=== PATIENT | female | born 1970 | race Two or more races ===

== ENCOUNTER 2024-11-08 10:00 | Day surgery (SDC) | payer MEDICAID, SELFPAY ==
[2024-11-06 11:05] VITALS: BMI 25.6
[2024-11-06 12:04] LABS: Basophils # (Auto) 0.1 Thou/mm3 (0.0-0.2); Basophils % (Auto) 1 % (0-2.5); Eosinophils # (Auto) 0.1 Thou/mm3 (0.0-0.5); Eosinophils % (Auto) 1 % (0-10); Hematocrit 36.6 % (36.0-46.0); Hemoglobin 12.5 g/dL (12.0-16.0); Immature Granulocytes % (Auto) 0 % (0-0); Immature Granulocytes Auto 0.01 Thou/mm3 (0.00-0.00); Lymphocytes # (Auto) 2.4 Thou/mm3 (1.0-4.8); Lymphocytes % (Auto) 36 % (10-50); Mean Corpuscular HGB Conc 34.2 g/dl (31.0-37.0); Mean Corpuscular Volume 88 fL (80-100); Monocytes # (Auto) 0.4 Thou/mm3 (0.0-0.8); Monocytes % (Auto) 6 % (0-12); Neutrophils # (Auto) 3.8 Thou/mm3 (1.8-7.7); Neutrophils % (Auto) 56 % (37-80); Nucleated Red Blood Cell % 0 /100 WBC (0); Platelet Count 201 Thou/mm3 (140-440); RDW Standard Deviation 40.2 fL (36.4-46.3); Red Blood Count 4.16 Miln/mm3 (4.00-5.20); White Blood Count 6.8 Thou/mm3 (3.6-11.0)
[2024-11-06 12:10] LABS: Partial Thromboplastin Time 25.9 Seconds (22.0-36.0); Prothrombin Time 10.6 Seconds (9.0-12.2)
[2024-11-06 12:15] LABS: Alanine Aminotransferase 14 U/L (10-49); Albumin, Serum 4.8 gm/dL (3.5-5.0); Alkaline Phosphatase 50 U/L (46-116); Anion Gap 9 (7-16); Aspartate Amino Transferase 13 U/L (0-34); BUN/Creatinine Ratio 16 Ratio (12-20); Bilirubin,Total 0.6 mg/dL (0.3-1.2); Blood Urea Nitrogen 13 mg/dL (9-23); Calcium 9.5 mg/dL (8.3-10.6); Calcium (Corrected) 9.5 mg/dL (8.5-10.1); Carbon Dioxide 24.5 mMol/L (20.0-31.0); Chloride 106 mMol/L (98-107); Creatinine (Component) 0.8 mg/dL (0.6-1.3); Estimated Creatinine Clearance 86.5 mL/min (>60); Globulin 2.4 gm/dL (2.3-3.5); Glucose 85 mg/dL (74-106); Osmolality,Calculated 276 (275-295); Sodium 139 mMol/L (136-145); Total Protein 7.2 gm/dL (5.7-8.2); eGFR > 60 See Note
[2024-11-08 10:51] VITALS: BP 100/64; PULSE 68; RESP 14; TEMP 36.7; O2SAT 100; BMI 25.2
[2024-11-08 13:22] VITALS: BP 116/68; PULSE 72; RESP 12; TEMP 36.8; O2SAT 99
--- NOTE | 2024-11-08 13:22 | SUR.PHASEII ---
2064 Patient arrived to recovery resting comfortably in [facility], awake and talking with staff, breathing unlabored, vital signs stable, denies pain, dressing intact to right axilla, dissolvable sutures, adaptic, gauze, medipore tape, no bleeding noted, lung sounds clear upon auscultation, bilateral radial pulses present when palpated, report received from Efrain DOMINGUEZ and Dr. Lopez
--- NOTE | 2024-11-08 13:23 | PD.SUROPNT ---
Date of Procedure 11/08/24 Pre Op Diagnosis Chronic abscess right axilla Post Op Diagnosis Same Procedure Wide excision of the chronic abscess right axilla Findings Patient was found to have an abscess measuring about 3 cm in diameter Procedure Description After the patient was brought to the operating room she was given sedation by the anesthesiologist. The right axilla was washed with ChloraPrep solution and draped in a sterile manner. She received 2 g of Ancef for prophylaxis because of the infection in the area. Timeout was performed. I injected 1% Xylocaine with sodium bicarbonate for obtaining analgesia. Then I made an elliptical incision and the length of the incision was about 5 to 6 cm the width of the abscess was about 2.5 cm. I excised the entire skin and portion of the subcutaneous tissue. Then the bleeding points were coagulated with cautery. I used the 3-0 chromic for approximation of the subcu cutaneous fat. Skin was then closed with 4-0 Monocryl Anesthesia MAC Pathology / specimen Other (The excised abscess) Estimated Blood Loss 30 Surgeon Alka Fischer MD Surgical Staff Operation Date: 11/08/24 12:45 Case Staff Anesthesiologist: Joshua Lopez RN First Assistant: Sol Valle
[2024-11-08 13:27] VITALS: BP 109/61; PULSE 72; RESP 13; O2SAT 99
[2024-11-08 13:32] VITALS: BP 110/70; PULSE 74; RESP 20; O2SAT 98
[2024-11-08 13:37] VITALS: BP 107/82; PULSE 69; RESP 17; O2SAT 98
[2024-11-08 13:52] VITALS: BP 120/73; PULSE 78; RESP 17; TEMP 36.9; O2SAT 98
--- NOTE | 2024-11-08 13:55 | SUR.PHASEII ---
patient disconnected from vital signs montior, IV discontinued and is dressed into her clothing awaiting her ride
--- NOTE | 2024-11-08 14:10 | SUR.PHASEII ---
1410 Patient meets discharge criteria from recovery, awake and alert, breathing unlabored, vital signs stable, denies pain, dressing intact; no bleeding noted, patient drinking apple juice; tolerating well, denies nausea, patient able to dress herself into her clothing, discharge instructions given to patient and patients partner, partner signed discharge instructions. Patient given all her belongings prior to discharge, transported via wheelchair and left in a private vehicle.
== END 2024-11-08 14:10 | disposition home or self-care (01) ==
PROVIDERS: PCP Nurse Practitioner; Referring Provider Surgery; Visit Provider Surgery
PROC: (CPT 11403; principal; 2024-11-08 12:30)
DX: L72.0 Epidermal cyst (principal)
CPT/HCPCS: 11403; 36415; 80053; 85025; 85610; 85730; A4217; A4649; J0690; J2250; J2704; J3010; J3490

== ENCOUNTER → 2025-08-06 | Outpatient (CLI) | payer MEDICAID, SELFPAY ==
--- NOTE | 2025-08-06 07:00 | EKG_ITS ---
[facility] Test Date: 2025-08-06 Pat Name: YANET OLMEDO Department: Room: - Gender: Female Payroll And Benefits Analyst: CHERYL : 1970 Requested By: Simba Topete Order Number: [id number] Reading MD: Simba Topete Measurements Intervals [place] Rate: 61 P: 44 OK: 105 QRS: 68 QRSD: 86 T: 73 QT: 405 QTc: 408 Interpretive Statements SINUS RHYTHM WITH SHORT OK INTERVAL Compared to ECG 11/04/2020 08:51:46 Short OK interval now present /store/S0/[id number].pdf
[2025-08-06 07:47] VITALS: BMI 27.1
[2025-08-06 08:44] LABS: Collection Type, Urine Clean Catch
[2025-08-06 08:56] LABS: Basophils # (Auto) 0.1 Thou/mm3 (0.0-0.2); Basophils % (Auto) 1 % (0-2.5); Eosinophils # (Auto) 0.1 Thou/mm3 (0.0-0.5); Eosinophils % (Auto) 1 % (0-10); Hematocrit 36.8 % (36.0-46.0); Hemoglobin 12.2 g/dL (12.0-16.0); Immature Granulocytes Auto 0.02 Thou/mm3 (0.00-0.00); Lymphocytes # (Auto) 1.6 Thou/mm3 (1.0-4.8); Lymphocytes % (Auto) 28 % (10-50); Mean Corpuscular HGB Conc 33.2 g/dl (31.0-37.0); Mean Corpuscular Hemoglobin 30.0 pg (25.0-35.0); Mean Corpuscular Volume 91 fL (80-100); Monocytes # (Auto) 0.3 Thou/mm3 (0.0-0.8); Monocytes % (Auto) 5 % (0-12); Neutrophils # (Auto) 3.8 Thou/mm3 (1.8-7.7); Neutrophils % (Auto) 64 % (37-80); Nucleated Red Blood Cell # 0.00 Thou/mm3 (0.00-0.00); Nucleated Red Blood Cell % 0 /100 WBC (0); Platelet Count 219 Thou/mm3 (140-440); RDW Standard Deviation 42.5 fL (36.4-46.3); Red Blood Count 4.06 Miln/mm3 (4.00-5.20); White Blood Count 5.9 Thou/mm3 (3.6-11.0)
[2025-08-06 09:09] LABS: Alanine Aminotransferase 13 U/L (10-49); Albumin, Serum 4.5 gm/dL (3.5-5.0); Albumin/Globulin Ratio 2.1 (1.2-2.2); Alkaline Phosphatase 42 U/L (46-116); Anion Gap 8 (7-16); Aspartate Amino Transferase 15 U/L (0-34); BUN/Creatinine Ratio 14 Ratio (12-20); Bilirubin,Total 1.0 mg/dL (0.3-1.2); Blood Urea Nitrogen 11 mg/dL (9-23); Calcium 8.9 mg/dL (8.3-10.6); Calcium (Corrected) 8.9 mg/dL (8.5-10.1); Carbon Dioxide 26.1 mMol/L (20.0-31.0); Chloride 108 mMol/L (98-107); Creatinine (Component) 0.8 mg/dL (0.6-1.3); Estimated Creatinine Clearance 81.9 mL/min (>60); Globulin 2.1 gm/dL (2.3-3.5); Glucose 97 mg/dL (74-106); Osmolality,Calculated 282 (275-295); Potassium 4.3 mMol/L (3.4-5.1); Sodium 142 mMol/L (136-145); Total Protein 6.6 gm/dL (5.7-8.2); eGFR > 60 See Note
[2025-08-06 10:18] LABS: Bilirubin,Urine Negative (Negative); Blood,Urine Trace (Negative); Color,Urine Drk-Yellow (Lt Yel-Yel); Glucose, Urine Negative (Negative); Ketones,Urine Negative (Negative); Leukocyte Esterase,Urine Negative (Negative); Nitrite,Urine Negative (Negative); PH,Urine 5.5 (5.0-7.0); Protein,Urine Negative (Neg - Trace); RBC,Urine 22 /hpf (0-3); Specific Gravity,Urine 1.028 (1.001-1.035); Squamous Epithelial Cell,Urine 3 /hpf (0-5); Urobilinogen,Urine Negative mg/dL (0.0-1.0); WBC,Urine 99 /hpf (0-5)
[2025-08-06 10:42] LABS: Clarity,Urine Cloudy (Clear/Hazy)
--- NOTE | 2025-08-11 14:25 | SUR.PREOP ---
Confirmed with pt to come in tomorrow at 0800.
--- NOTE | 2025-08-11 16:12 | ESHP_ITS ---
RE: YANET OLMEDO : 1970 DATE OF ADMISSION: 08/12/2025 HISTORY OF PRESENT ILLNESS: Patient is a 55-year-old female. 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 She is getting excision of the urethral diverticulum and cystoscopy. She has seen Dr. Roberto who drained the cyst and it recurred. She has also seen Dr. Velez. Sometimes she has a hard time to urinate. The swelling has been there more than a year. PAST SURGICAL HISTORY: Three C-sections and tubal ligation. She had tendon repair, cholecystectomy and right oophorectomy. She weighs 160 pounds. SOCIAL HISTORY: She has 3 children. ALLERGIES: NONE KNOWN. PAST MEDICAL HISTORY: No history of diabetes. No history of hypertension. HOME MEDICATIONS: She takes statin medication and allergy medications. PHYSICAL EXAMINATION: HEENT: Normal. NECK: Supple. LUNGS: Clear. CARDIOVASCULAR: Heart sounds are normal. ABDOMEN: Soft without any organomegaly. No guarding. GENITOURINARY: Pelvic examination reveals a cystic mass in the anterior vaginal wall. Urethral opening is hard to see. LABORATORY DATA: Cystoscopy was done which revealed 2 openings on the right side and 1 left urethral opening and she has a large cyst in the anterior vaginal wall which is a urethral diverticulum which is about 2-3 cm in size. IMPRESSION: Urethral diverticulum. PLAN: Excision of urethral diverticulum and cystoscopy. Planned procedure risks and complications have been discussed with the patient. Patient has understood them and agreed to proceed. DT: 15:24:13 TT: 16:10:00 Ref: [id number] - TID: [id number]
== END | disposition home or self-care (01) ==
LOC: SEKG 08-12 11:29
PROVIDERS: Anesthesiology; PCP Nurse Practitioner; Referring Provider Surgery; Visit Provider Surgery
DX: Z01.810 Encounter for preprocedural cardiovascular examination (principal); N36.1 Urethral diverticulum
CPT/HCPCS: 93005

== ENCOUNTER → 2025-09-10 | Outpatient (CLI) | payer MEDICAID, SELFPAY ==
--- NOTE | 2025-09-10 11:30 | XR_ITS ---
Examination: CT lung low dose screening, without contrast. 2-D sagittal reconstructions. 2-D coronal reconstructions. 3-D reconstructions. Date and time of exam: September 09, 2025, 11:45 a.m. INDICATIONS: Nicotine dependence, smoking history several years CTDI: vol (mGy): 9.43 DLP: (mGycm): 359 Technique: Multiple 1.25 mm axial sections of the Low dose screening have been obtained. 2-D sagittal and coronal reconstructions have been obtained. 3-D reconstructions have been obtained. Low dose protocols were performed. One or more of the following dose reduction techniques were used; automated exposure control, adjustment of the mA and/or KV according to patient size, use of iterative reconstruction technique. Findings: No thoracic aortic aneurysmal dilatation Pulmonary artery segments are not enlarged. No paratracheal tracheobronchial or bronchopulmonary adenopathy. 2 mm pulmonary nodule left lower lobe No pneumonia or pulmonary edema No visualized liver or splenic lesion No pancreatic mass Kidneys partially visualized no hydronephrosis Mild thoracic spondylosis IMPRESSION: No mediastinal lymphadenopathy 2 mm pulmonary nodule left lower lobe, consider 6-month follow-up CT chest without contrast
--- NOTE | 2025-09-10 12:00 | XR_ITS ---
EXAMINATION: Ultrasound abdominal aorta TECHNIQUE: Grayscale sonographic images abdominal aortic Date and time: September 10, 2025, 1211 hours INDICATIONS: Smoking history 30 years FINDINGS: Transverse dimension proximal aorta 3.1 cm mid aorta 2.5 cm distal aorta 2.1 cm right iliac 1.2 cm left iliac 1.2 cm IMPRESSION: Minimal aneurysmal dilatation proximal abdominal aorta Consider 6-month follow-up ultrasound abdominal aorta
--- NOTE | 2025-09-10 13:15 | XR_ITS ---
Examination: Screening digital mammography, bilateral Computer aided detection 3-D breast Tomosynthesis, bilateral Date and time of exam: September 10, 2025, 11:34 a.m., compared to mammograms dating to April 26, 2018 Indication: Screening Technique: Nonmagnified MLO, CC views of the breasts to been obtained, reconstructed from 3-D Tomosynthesis images. R2 computer aided detection program utilized for evaluation of suspicious masses and/or abnormal calcifications. 3-D Tomosynthesis images obtained. Findings: The breasts are heterogeneously dense, which may obscure small masses Stable focal asymmetry inner left breast on the cc view No interval suspicious masses Impression: BI-RADS category II: Benign Findings. Recommend 1 year follow-up mammogram.
== END | disposition home or self-care (01) ==
PROVIDERS: Referring Provider Internal Medicine; Visit Provider Internal Medicine
DX: Z12.31 Encounter for screening mammogram for malignant neoplasm of breast (principal); R92.323 Mammographic fibroglandular density, bilateral breasts; I71.40 Abdominal aortic aneurysm, without rupture, unspecified; R91.1 Solitary pulmonary nodule; Z87.891 Personal history of nicotine dependence
CPT/HCPCS: 71271; 76770; 77063; 77067

== ENCOUNTER 2025-09-16 13:18 | Observation (INO) | payer MEDICAID, SELFPAY ==
[2025-09-10 08:39] VITALS: BMI 26.6
[2025-09-10 09:00] LABS: Collection Type, Urine Clean Catch
[2025-09-10 10:31] LABS: Basophils # (Auto) 0.1 Thou/mm3 (0.0-0.2); Basophils % (Auto) 1 % (0-2.5); Eosinophils # (Auto) 0.1 Thou/mm3 (0.0-0.5); Eosinophils % (Auto) 1 % (0-10); Hematocrit 38.8 % (36.0-46.0); Hemoglobin 12.7 g/dL (12.0-16.0); Immature Granulocytes Auto 0.01 Thou/mm3 (0.00-0.00); Lymphocytes # (Auto) 2.1 Thou/mm3 (1.0-4.8); Lymphocytes % (Auto) 34 % (10-50); Mean Corpuscular HGB Conc 32.7 g/dl (31.0-37.0); Mean Corpuscular Hemoglobin 29.5 pg (25.0-35.0); Mean Corpuscular Volume 90 fL (80-100); Monocytes # (Auto) 0.3 Thou/mm3 (0.0-0.8); Monocytes % (Auto) 6 % (0-12); Neutrophils # (Auto) 3.5 Thou/mm3 (1.8-7.7); Neutrophils % (Auto) 58 % (37-80); Nucleated Red Blood Cell # 0.00 Thou/mm3 (0.00-0.00); Nucleated Red Blood Cell % 0 /100 WBC (0); Platelet Count 224 Thou/mm3 (140-440); RDW Standard Deviation 43.7 fL (36.4-46.3); Red Blood Count 4.30 Miln/mm3 (4.00-5.20); White Blood Count 6.0 Thou/mm3 (3.6-11.0)
[2025-09-10 10:46] LABS: Bacteria,Urine Rare; Bilirubin,Urine Negative (Negative); Blood,Urine Negative (Negative); Clarity,Urine Clear (Clear/Hazy); Color,Urine Lt-Yellow (Lt Yel-Yel); Glucose, Urine Negative (Negative); Ketones,Urine Negative (Negative); Leukocyte Esterase,Urine Negative (Negative); Nitrite,Urine Negative (Negative); PH,Urine 6.5 (5.0-7.0); Protein,Urine Negative (Neg - Trace); RBC,Urine 3 /hpf (0-3); Specific Gravity,Urine 1.020 (1.001-1.035); Squamous Epithelial Cell,Urine 1 /hpf (0-5); Urobilinogen,Urine Negative mg/dL (0.0-1.0); WBC,Urine 1 /hpf (0-5)
[2025-09-10 10:52] LABS: Alanine Aminotransferase 25 U/L (10-49); Albumin, Serum 4.8 gm/dL (3.5-5.0); Albumin/Globulin Ratio 2.0 (1.2-2.2); Alkaline Phosphatase 47 U/L (46-116); Anion Gap 10 (7-16); Aspartate Amino Transferase 21 U/L (0-34); BUN/Creatinine Ratio 14 Ratio (12-20); Bilirubin,Total 0.6 mg/dL (0.3-1.2); Blood Urea Nitrogen 11 mg/dL (9-23); Calcium 9.2 mg/dL (8.3-10.6); Calcium (Corrected) 9.2 mg/dL (8.5-10.1); Carbon Dioxide 25.3 mMol/L (20.0-31.0); Chloride 107 mMol/L (98-107); Creatinine (Component) 0.8 mg/dL (0.6-1.3); Estimated Creatinine Clearance 84.1 mL/min (>60); Globulin 2.4 gm/dL (2.3-3.5); Glucose 80 mg/dL (74-106); Osmolality,Calculated 281 (275-295); Potassium 4.2 mMol/L (3.4-5.1); Sodium 142 mMol/L (136-145); Total Protein 7.2 gm/dL (5.7-8.2); eGFR > 60 See Note
--- NOTE | 2025-09-15 13:42 | ESCONSULT_ITS ---
RE: YANET OLMEDO : 1970 DATE OF CONSULTATION: 09/15/2025 HISTORY OF PRESENT ILLNESS: A 55-year-old female. She has swelling over her private area in the vagina. It appears to be a urethral diverticulum. She is now scheduled to have urethral diverticulectomy and cystoscopy. She had a cyst there on the anterior vaginal wall in the vagina, Dr. Roberto drained it. It has recurred. Sometimes the patient has a hard time to urinate. PAST SURGICAL HISTORY: Previous surgeries, three C-sections, tubal ligation, tendon repair, cholecystectomy, right ovarian surgery and removal. Patient has three children. Patient weighs 160 pounds. ALLERGIES: NONE KNOWN. PAST MEDICAL HISTORY: No history of diabetes mellitus. No history of hypertension. MEDICATIONS: The patient does not take any medication except statin medication and allergy medicine. CLINICAL EXAMINATION: HEENT: Normal. NECK: Supple. LUNGS: Clear. CARDIOVASCULAR: Heart sounds are normal. ABDOMEN: Soft without any organomegaly. No guarding. No rigidity. EXTREMITIES: Normal. GENITOURINARY: Pelvic examination revealed an anterior vaginal wall cyst underneath the mucosa of the anterior vaginal wall. There is a large cyst which is about 2-2.5 cm in size which is located just below the urethral meatus. Cystoscopy revealed a large cyst in the vagina and cystoscopy revealed no intravesical stones or tumors. IMPRESSION: Urethral diverticulum. PLAN: Excision of urethral diverticulum with cystoscopy. Planned procedure risks and complications have been discussed with the patient. Patient has understood them and agreed to proceed. DT: 13:17:24 TT: 13:42:00 Ref: [id number] - TID: [id number]
[2025-09-16] VITALS (19 sets, daily range): BP systolic 90–128; BP diastolic 54–77; PULSE 67–110; RESP 12–98; TEMP 36.3–36.8; O2SAT 95–100; BMI 26.4
--- NOTE | 2025-09-16 10:48 | SUR.PHASEI ---
1048 Patient arrived to recovery resting comfortably in [facility], awake and talking with staff, breathing unlabored, vital signs stable, denies pain and nausea, dressing intact to vaginal area; vaginal packing; kerlix roll soaked in saline, no bleeding noted, urinary catheter 16F in place with leg secure; draining to gravity, report received from Judd DOMINGUEZ and Dr. Webb
--- NOTE | 2025-09-16 13:00 | SUR.PHASEII ---
Called and gave report on pt. s/p surgery to Pratik DOMINGUEZ on M/S unit. Pt. is AAOx3, no c/o pain or nausea at this time, IV saline locked, vaginal packing and wallace catheter intact.
--- NOTE | 2025-09-16 13:10 | SUR.PHASEII ---
Pt. transferred to room 350 with all of belongings via gurney by staff, VSS, no c/o pain or nausea, Pratik DOMINGUEZ assumed care of pt.
[2025-09-16] MEDS: RINGERS LACTATED 1000 ML 1,000 ML 100 ML IV ×2 (14:00→23:34)
[2025-09-16] MEDS: HYDROcodone/APAP 5/325 TABLET 1 TAB PO (17:46)
--- NOTE | 2025-09-16 23:29 | ESOP_ITS ---
RE: YANET OLMEDO : 1970 PREOPERATIVE DIAGNOSIS: Large urethral diverticulum. POSTOPERATIVE DIAGNOSIS: Large urethral diverticulum. PROCEDURE PERFORMED: Excision of the urethral diverticulum with cystoscopy. ANESTHESIA: General, by Dr. Webb. INDICATIONS: Patient is a 55-year-old female with history of a large urethral diverticulum. She has this going on for a while. This was drained in the past by somebody. It has recurred and patient is now scheduled to have excision of the urethral diverticulum with cystoscopy. Planned procedure, risks, and complications have been discussed with the patient. Patient understood them and agreed to proceed. DESCRIPTION OF PROCEDURE: After the patient was brought to the operating table under adequate general anesthesia in dorsal lithotomy position, parts were prepped and draped in the usual fashion. Anesthesia was given by Dr. Webb. A 16-Ind[place] Resendez catheter was then inserted into the bladder and was left indwelling. Injection of local anesthetic with epinephrine was done in the submucosal area in the anterior vaginal wall. Inverted U-shaped incision was then made over the urethral diverticulum. The flap was created and was pulled down. Another layer was incised transversely. This was the fascia and then the diverticulum was visualized. This was a large diverticulum, about 2.5 cm in size. This was carefully dissected from surrounding structures down to the neck of the swelling and this was excised. There was a small connection to the urethra and this was closed with 3-0 chromic catgut sutures. The tissue, which was incised transversely, was closed with again 3-0 chromic catgut sutures, and the flap, which was created from the anterior vaginal wall mucosa was brought back and then sutured with a 3-0 chromic catgut sutures. Resendez catheter was removed. Cystoscope was then inserted into the bladder. The urethra appeared to be intact. There was no leakage from the bladder into the vagina and the bladder appeared to be intact without any abnormality. Cystoscope was then removed. Resendez catheter was reinserted back. Patient was prepped with Hibiclens and a Kerlix roll soaked in normal saline was used as a vaginal packing, which was inserted into the vagina. Patient tolerated the entire procedure well and left the room in good condition. Sponge count and needle count at the end of the procedure was found to be correct. Estimated blood loss was approximately 50 mL. The urethral diverticulum, which was excised, was submitted for histological examination. It was found to contain purulent fluid about 30 mL and that was sent for culture and sensitivity examination. DT: :04:23 TT: 23:28:00 Ref: [id number] - TID: [id number]
[2025-09-17 04:00] VITALS: BP 94/55; PULSE 77; RESP 18; TEMP 36.5; O2SAT 96
[2025-09-17] MEDS: HYDROcodone/APAP 5/325 TABLET 1 TAB PO (05:46)
[2025-09-17 05:56] LABS: Basophils # (Auto) 0.0 Thou/mm3 (0.0-0.2); Basophils % (Auto) 0 % (0-2.5); Eosinophils # (Auto) 0.0 Thou/mm3 (0.0-0.5); Eosinophils % (Auto) 0 % (0-10); Hematocrit 31.6 % (36.0-46.0); Hemoglobin 10.5 g/dL (12.0-16.0); Immature Granulocytes Auto 0.05 Thou/mm3 (0.00-0.00); Lymphocytes # (Auto) 1.8 Thou/mm3 (1.0-4.8); Lymphocytes % (Auto) 18 % (10-50); Mean Corpuscular HGB Conc 33.2 g/dl (31.0-37.0); Mean Corpuscular Hemoglobin 29.7 pg (25.0-35.0); Mean Corpuscular Volume 90 fL (80-100); Monocytes # (Auto) 0.4 Thou/mm3 (0.0-0.8); Monocytes % (Auto) 4 % (0-12); Neutrophils # (Auto) 7.8 Thou/mm3 (1.8-7.7); Neutrophils % (Auto) 77 % (37-80); Nucleated Red Blood Cell # 0.00 Thou/mm3 (0.00-0.00); Nucleated Red Blood Cell % 0 /100 WBC (0); Platelet Count 182 Thou/mm3 (140-440); RDW Standard Deviation 43.4 fL (36.4-46.3); Red Blood Count 3.53 Miln/mm3 (4.00-5.20); White Blood Count 10.1 Thou/mm3 (3.6-11.0)
[2025-09-17 06:37] LABS: Albumin, Serum 3.9 gm/dL (3.5-5.0); Anion Gap 11 (7-16); BUN/Creatinine Ratio 10 Ratio (12-20); Blood Urea Nitrogen 7 mg/dL (9-23); Calcium 8.6 mg/dL (8.3-10.6); Calcium (Corrected) 8.7 mg/dL (8.5-10.1); Carbon Dioxide 22.0 mMol/L (20.0-31.0); Chloride 110 mMol/L (98-107); Creatinine (Component) 0.7 mg/dL (0.6-1.3); Estimated Creatinine Clearance 95.9 mL/min (>60); Glucose 100 mg/dL (74-106); Osmolality,Calculated 282 (275-295); Phosphorous 4.1 mg/dL (2.4-5.1); Potassium 4.0 mMol/L (3.4-5.1); Sodium 143 mMol/L (136-145); eGFR > 60 See Note
[2025-09-17 07:46] VITALS: BP 91/59; PULSE 61; RESP 18; TEMP 36.5; O2SAT 96
[2025-09-17] MEDS: ATORVASTATIN CALCIUM 20 MG TABLET 10 MG PO (08:07)
[2025-09-17] MEDS: MULTIVITAMINS TABLET 1 TAB PO (08:07)
[2025-09-17] MEDS: HYDROCORTISONE ACET CR 2.5% 30 GM TUBE PR (08:07)
[2025-09-17] MEDS: MONTELUKAST SODIUM 10 MG TABLET PO (08:07)
[2025-09-17] MEDS: FLUTICASONE NAS SPRAY 0.05% 16 GM BTL 1 SPRAY NASAL (08:07)
[2025-09-17] MEDS: LEVOFLOXACIN/D5W 500 MG IVPB 500 MG/100 ML BAG 100 MG IV (08:08)
[2025-09-17] MEDS: ONDANSETRON INJ 2 MG/ML INJ 2 ML 4 MG IVP (11:03)
[2025-09-17 11:41] VITALS: BP 111/61; PULSE 71; RESP 18; TEMP 36.5; O2SAT 96
== END 2025-09-17 11:40 | disposition home or self-care (01) ==
LOC: S3NX 13:28
PROVIDERS: Anesthesiology; Admitting Provider Surgery; PCP Internal Medicine; Referring Provider Surgery; Visit Provider Surgery
PROC: 0TJB8ZZ Inspection of Bladder, Via Natural or Artificial Opening Endoscopic (ICD-10-PCS; CPT 52000; principal; 2025-09-16 09:15)
DX: N36.1 Urethral diverticulum (principal); Z23 Encounter for immunization
CPT/HCPCS: 53230; 36415; 80053; 80069; 81001; 85025; 87070; 87086; 87205; 90471; 90686; 96361; 96374; A4217; A4649; G0378; J0694; J1100; J1956; J2371; J2405; J2704; J2765; J3010; J3490; J7120; A9270; G0008; J9060